=== PATIENT | female | born 2000 | race Caucasian/White ===

== ENCOUNTER 2020-09-02 14:27 | Emergency (ER) | payer OTHER ==
[~2020-09-02] VITALS: Ht 162.6 cm; Wt 54.0 kg
[2020-09-02] MEDS ORDERED: NEXPLANON68 MG (15:23)
== END 2020-09-02 15:25 | disposition home or self-care (01) ==
LOC: ER 14:27
DX: S61.210A Laceration without foreign body of right index finger without damage to nail, initial encounter (principal); Z23 Encounter for immunization; W27.2XXA Contact with scissors, initial encounter
CPT/HCPCS: 90471; 90714; 99282